=== PATIENT | male | born 1970 | race Hispanic/Latino ===

== ENCOUNTER 2016-11-09 00:22 | Emergency (ER) | payer OTHER ==
[~2016-11-09] VITALS: Ht 180.3 cm; Wt 81.8 kg
[2016-11-09 00:27] VITALS: BP 139/89; PULSE 83; RESP 16; O2SAT 99
--- NOTE | 2016-11-09 01:42 | ED.REPORT ---
HPI-Back Pain 40 and Over Date of Service Nov 09, 2016 ED Provider: Erick Galvan DO Pt is a 46 y.o. Egyptian-speaking male who presents to the ED c/o right sided low back pain onset 4 days ago. Pt states that he was pushing a cow at work when he had sudden onset pain. He states the pain has been constant since onset. He denies weakness, numbness, incontinence, bladder or bowel dysfunction , and extremity pain. Nursing Notes Stated Complaint: BACK PAIN Chief Complaint: Back Pain or Injury Nursing Notes Reviewed: Yes Allergies: Coded Allergies: No Known Allergies (Verified Allergy, Unknown, 11/09/16) General Time Seen by MD: 01:42 Chief Complaint Back pain Hx Obtained From: Patient Arrived By: Walk-in Sudden in Onset?: Yes Onset Occurred: 4 days ago Symptom Duration: Since onset Location: : Perispinal lumbar Quality: Painful Severity: Current: Moderate Severity: Maximum: Severe Past Medical History Past Medical History Healthy Past Surgical History None Smoking History Current Every Day Smoker Social History Alcohol Use: "Social" Drug Use: Denies drug use Ambulatory Status Independent Review of Systems Male: Denies Incontinence Musculoskeletal: Reports: Back pain, Denies: Extremity pain Neurologic: Denies: Bladder dysfunction, Bowel dysfunction, Numbness, Weakness Complete sys rev & neg: except as marked. Physical Exam Initial Vital Signs Vital Signs (First) Date Time Temp Pulse Resp B/P Pulse Ox O2 Delivery O2 Flow Rate FiO2 11/09/16 00:27 36.5 83 16 139/89 99 Room Air Initial VS: Reviewed Head / Eyes: Atraumatic, Normocephalic Extremities: Vascular intact, Neuro intact Skin: Warm, Dry, No cyanosis Psychiatric: Mood/affect normal, Behavior normal, Normal thought content General/Constitutional: Awake, Alert, No acute distress, Well appearing, Well developed, Well hydrated, Well nourished, Not toxic appearing Respiratory / Chest: Atraumatic, Breath sounds NL, Breath sounds = bilat, No respiratory distress, No rales, No rhonchi, No wheezing Cardiovascular: Heart rate NL, Regular rhythm, Heart sounds NL, Peripheral circulation NL Abdomen: Atraumatic, Soft, Non-tender, No guarding, No rebound, No distention Back: Atraumatic, Inspection NL Flank / Spine / Paraspinal: Positive: Lumbar paraspinal tend... (Low) Neurologic: Oriented X3, Speech NL, No motor deficits Sensory Deficit: Negative: Saddle anesthesia Re-Eval/Medical Decision Med Decision/Clinical Course No signs of cord syndrome or myelopathy. No saddle anesthesia. No urine retention or loss of bowel or bladder control. Symmetric reflexes. Pain is reproduced with palpation of the lumbar paraspinal muscle mass. This is all on the right. Symptoms consistent with acute lumbar strain with radiculopathy. This gentleman was medicated with Toradol and he felt better. Placement a short course of [place]. Naprosyn as well. Recommended outpatient follow-up. Re-Evaluation/Progress : Time of Eval: 01:59 Re-Evaluation/Progress Note: Physical exam performed. Discussed plan for discharge, pt understands and agrees with plan. Discharge & Departure Impression: Primary Impression: Low back pain Chronicity: acute Back pain laterality: right Sciatica presence: with sciatica Sciatica laterality: sciatica of right side Qualified Code: M54.41 - Lumbago with sciatica, right side Disposition: Home Discharge Condition All VS Reviewed: Yes Condition: Improved Patient Instructions: Acute Low Back Pain (ED) Additional Instructions: You were seen here today for low back pain. I recommend you follow-up with your primary care provider next week. Refrain from lifting or moving heavy objects until your pain has improved. Take 1-2 [place] every 6 hours as needed for severe pain. Do not drink, drive, or consume acetaminophen while taking [place]. Return if you develop worsening pain, numbness, weakness, incontinence, or any new or worsening symptoms. Observaron aqu hoy para dolor de espalda. Te recomiendo seguimiento con cowan m dico de atencin primaria la semana que viene. Abstenerse de levantar o car mover objetos pesados hasta que cowan dolor jones alexandr. Pavel [place] de 1-2 cada 6 horas jacques necesario para el dolor benjamin. No romain, coche, o consumir acetaminofn teniendo [place]. Volver si desarrolla empeoramiento del dolor, entumecimiento, debilidad, incontinencia o cualquier sntoma nuevo o que empeora. Referrals: [facility]OPCP (PCP) [facility] Scribe Attestation Portions of this note were transcribed by Marck Cordova. I, Dr. Galvan personally performed the history, physical exam and medical decision-making; I reviewed and confirmed the accuracy of the information in the transcribed note. Signed by : Regla Torres, 11/09/16 and 0200 copies to: [facility] Erick Galvan DO Nov 09, 2016 01:42 MARCK CORDOVA Nov 09, 2016 01:52
[2016-11-09] MEDS ORDERED: _HYDROcodone/APAP 5-325 mg Tablet PO PRN (01:50)
[2016-11-09] MEDS ORDERED: Ketorolac 30 mg/mL 2 mL Inj IM ONE (01:50)
[2016-11-09 02:49] VITALS: BP 123/77; PULSE 75; RESP 16; O2SAT 98
== END 2016-11-09 02:40 | disposition home or self-care (01) ==
LOC: SED 00:22
DX: M54.41 Lumbago with sciatica, right side (principal); S39.012A Strain of muscle, fascia and tendon of lower back, initial encounter; X50.0XXA Overexertion from strenuous movement or load, initial encounter; Y92.89 Other specified places as the place of occurrence of the external cause; Y99.0 Civilian activity done for income or pay; F17.200 Nicotine dependence, unspecified, uncomplicated
CPT/HCPCS: 96372; 99283; J1885

== ENCOUNTER 2017-01-18 11:17 | Emergency (ER) | payer OTHER ==
[~2017-01-18] VITALS: Ht 165.1 cm; Wt 76.3 kg
--- NOTE | 2017-01-18 11:25 | ED.REPORT ---
HPI-Trauma Multiple Date of Service January 18, 2017 ED Provider: Dr. Marie 46 y/o male with no pertinent hx presents to the ED complaining of head and right hand injury, onset just prior to arrival. The pt reports he fell 10 feet into the silo at work and hit his head upon the fall.The pt states his right hand hurts around the thumb. The pain is exacerbated when he clenches it into a fist. He denies LOC, neck pain, chest pain, abdominal pain and pain in extremities other than the right upper extremity. His last tetanus shot was 2 years ago. Nursing Notes Stated Complaint: POST FALL/FACIAL LACERATION/RIGHT HAND PAIN Nursing Notes Reviewed: Yes Allergies: Coded Allergies: No Known Allergies (Verified Allergy, Unknown, 11/09/16) General Time Seen by Provider: 11:24 Chief Complaint Extremity pain/injury Hx Obtained From: Patient Arrived By: Walk-in Onset Occurred: Just prior to arrival Symptom Duration: Since onset Progression Since Onset: Unchanged Caused by: Fall from height Location: : Hand right: Wrist right Quality: Painful Radiation: Does not radiate Severity: Current: Moderate Severity: Maximum: Moderate Immunizations: Tetanus up to date Recent Healthcare: No recent doctor visit Similar Sx Previous: No Past Medical History Past Medical History Healthy Past Surgical History None Smoking History Current Every Day Smoker Social History Alcohol Use: "Social" Drug Use: Denies drug use Ambulatory Status Independent Review of Systems Cardiovascular: Denies: Chest pain GI: Denies: Abdominal pain Musculoskeletal: Reports: Extremity pain (Right hand), Denies: Neck pain Neurologic: Reports: Headache Complete sys rev & neg: except as marked. Physical Exam Initial Vital Signs Vital Signs (First) Date Time Temp Pulse Resp B/P Pulse Ox O2 Delivery O2 Flow Rate FiO2 01/18/17 11:32 36.8 85 18 127/82 98 Room Air Initial VS: Reviewed Skin: Warm, Dry, No cyanosis No distracting injury. Head / Eyes: Normocephalic, PERRL Linear lacceration about the left eyebrow. No other facial injuries. Neck: Atraumatic, Full range of motion No midline tenderness or restriction. Respiratory / Chest: No chest tenderness Abdomen: Atraumatic, Soft, Non-tender, No guarding, No rebound ENT: Gums/dentition NL Occlusion normal. Upper Extremity / MS: Full range of motion, No swelling, Non-tender, No deformity, Neurologic intact, Vascular intact Wrist / Hand: No deformity, Neurologic intact, Vascular intact Right wrist and hand painful. Lower Extremity / Pelvis / MS: Full range of motion, No swelling, Non-tender, No erythema, No deformity, Neurologic intact, Vascular intact, Pelvis stable, Pelvis non-tender Interpretation & Diagnostics X-Ray Interpretation Xray Interpretation: IMPRESSION: No acute osseous abnormality of the right wrist. Dictated by: Carlos A Diaz M.D. on 01/18/2017 at 11:06 Approved by: Carlos A Diaz M.D. on 01/18/2017 at 11:06 X-Ray Ordered: Wrist right Interpretation / Wet Read by: Interpret - Radiologist Xray Interpretation: IMPRESSION: No acute fracture of the right hand. Dictated by: Carlos A Diaz M.D. on 01/18/2017 at 11:05 Approved by: Carlos A Diaz M.D. on 01/18/2017 at 11:05 X-Ray Ordered: Hand right Interpretation / Wet Read by: Interpret - Radiologist Procedures Laceration Management Time: 11:55 Procedure Performed by: ED resident Consent / Setup / Site Prep: Informed consent provided, Consent from patient , Time-out performed, Hand hygiene observed, Stand sterile technique Location of Wound: Forehead about the right eyebrow. Wound Length: 3 cm Local Anesthesia: Lidocaine 1% Digital Block: No Wound Preparation: Normal saline Debridement: None Irrigation: 50 cc Foreign Body Explore / Removal: Explored for foreign body Undermining / Margins: Undermining minimal Repair Skin: Nylon # Sutures - Skin: 4 Closure Layers: 1 Suture Technique: Simple Post-Procedure / Complications: Antibiotic oint applied, Dressing applied, No complications, Condition improved, Tolerated procedure well, Patient stable Re-Eval/Medical Decision Source of Hx: Old records Re-Evaluation/Progress : Time of Eval: 13:50 Patient Status: Condition improved Re-Evaluation/Progress Note: Rechecked pt. Discussed imaging results and diagnosis. Informed the pt of the plan to discharge. Pt understands and agrees with plan. F/U instructions and RTER warning given. All questions addressed. Counseled Regarding: Diagnosis, Lab results, Need for follow-up, When/why to return to ED Discharge & Departure Impression: Primary Impression: Fall from height of greater than 3 feet Additional Impressions: Laceration of eyebrow, left Encounter type: initial encounter Qualified Code: S01.112A - Laceration without foreign body of left eyelid and periocular area, initial encounter Contusion of right forearm Encounter type: initial encounter Qualified Code: S50.11XA - Contusion of right forearm, initial encounter Disposition: Home Discharge Condition All VS Reviewed: Yes Condition: Stable Patient Instructions: Contusion in Adults (ED), Facial Laceration (ED) Additional Instructions: No dangerous injuries are identified. I recommend Tylenol or ibuprofen as needed for pain. Sutures in the forehead need to be removed in one week. Follow-up in a week for your other injuries if your symptoms are not much improved. Referrals: [facility] Scribe Attestation Portions of this note were transcribed by Vianey Corbin. I, , personally performed the history, physical exam and medical decision-making;I reviewed and confirmed the accuracy of the information in the transcribed note. Signed by Regla Hahn. 01/18/17 [id number] copies to: [facility] Karl Marie MD January 18, 2017 11:25 Vianey Corbin January 18, 2017 11:36
[2017-01-18 11:32] VITALS: BP 127/82; PULSE 85; RESP 18; O2SAT 98
[2017-01-18] MEDS ORDERED: Lidocaine 1%-Epi 1:100,000 20 mL Inj ONE (11:43)
--- NOTE | 2017-01-18 12:07 | DRSVH ---
PROCEDURE: X-RAY RIGHT HAND, MINIMUM THREE VIEWS ([id number]) INDICATIONS: Trauma TECHNIQUE: 4 views of the hand(s) acquired. COMPARISON: [facility], CR, XR WRIST 3VW RT, 01/18/2017, 11:21. FINDINGS: Bones: No fractures or dislocations. Carpal bones are normally aligned. No suspicious bony lesions . Soft tissues: No suspicious soft tissue calcifications. IMPRESSION: No acute fracture of the right hand. Dictated by: Carlos A Diaz M.D. on 01/18/2017 at 11:05 Approved by: Carlos A Diaz M.D. on 01/18/2017 at 11:05
--- NOTE | 2017-01-18 12:08 | DRSVH ---
PROCEDURE: X-RAY RIGHT WRIST COMPLETE, MINIMUM THREE VIEWS ([id number]) INDICATIONS: Trauma. TECHNIQUE: 4 views of the wrist were acquired. COMPARISON: [facility], CR, XR HAND 3VW RT, 01/18/2017, 11:21. FINDINGS: Bones: No fractures or dislocations. No suspicious bony lesions. There may be mild dorsal subluxat ion of the distal ulna with respect to the distal radius. No widening of the distal radioulnar joint is evident. Scaphoid view: Intact. Soft tissues: No suspicious soft tissue calcifications. IMPRESSION: No acute osseous abnormality of the right wrist. Dictated by: Carlos A Diaz M.D. on 01/18/2017 at 11:06 Approved by: Carlos A Diaz M.D. on 01/18/2017 at 11:06
[2017-01-18 14:25] VITALS: BP 120/83; PULSE 76; RESP 16; O2SAT 98
== END 2017-01-18 14:09 | disposition home or self-care (01) ==
LOC: SED 11:17
DX: S01.112A Laceration without foreign body of left eyelid and periocular area, initial encounter (principal); S50.11XA Contusion of right forearm, initial encounter; W17.89XA Other fall from one level to another, initial encounter; Y93.89 Activity, other specified; Y92.69 Other specified industrial and construction area as the place of occurrence of the external cause; Y99.0 Civilian activity done for income or pay; F17.200 Nicotine dependence, unspecified, uncomplicated

== ENCOUNTER 2017-02-11 17:42 | Emergency (ER) | payer OTHER ==
[2017-02-11 17:48] VITALS: BP 99/62; PULSE 78; RESP 15; O2SAT 98
--- NOTE | 2017-02-11 18:28 | ED.REPORT ---
HPI-General Illness Date of Service Feb 11, 2017 ED Provider: Mike Stauffer MD The patient is a healthy 46 year old male who presents to the ED with right wrist pain onset three weeks ago, after a 10 foot fall at work. The pain is "stabbing" and "stinging" in nature, without radiation, exacerbated with movement and clenching his fist. The patient also reports right hand weakness. He denies limited range of motion of the wrist, hand tingling, additional injury /trauma, or other symptoms. The patient was seen in the ED on 01/18/17, just after onset, and was discharged after negative x-rays. No new injury noted. 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 Nursing Notes Stated Complaint: RIGHT HAND PAIN Chief Complaint: Extremity Trauma Nursing Notes Reviewed: Yes Allergies: Coded Allergies: No Known Allergies (Verified Allergy, Unknown, 11/09/16) General Time Seen by MD: 18:25 Chief Complaint Other (Right Wrist Pain) Hx Obtained From: Patient Arrived By: Walk-in Sudden in Onset?: Yes Onset Occurred: More than a week ago... (3 weeks) Symptom Duration: Since onset Caused by: Fall from height... (6-10 feet) Context: Occurred at: Workplace Location: : Wrist right Quality: Painful, Stabbing (and Stinging) Severity: Current: Moderate Severity: Maximum: Moderate Pertinent Negative: Relieved by nothing Recent Healthcare: Recent doctor visit Past Medical History Past Medical History Healthy Past Surgical History "Clot removal" s/p head injury in 1998 Smoking History Current Every Day Smoker Social History Alcohol Use: "Social" Drug Use: Denies drug use Other Social History: Good social support Ambulatory Status Independent Review of Systems - Llimited range of motion of the wrist, hand tingling Full Review of Systems Constitutional: Denies: Fever Respiratory: Denies: Non-productive cough, Shortness of breath GI: Denies: Diarrhea, Vomiting Musculoskeletal: Reports: Joint pain (Right wrist) Neurologic: Reports: Focal weakness (Right hand) Complete sys rev & neg: except as marked. Physical Exam General: Well appearing, no acute distress HEENT: mucous membranes moist Pulm: Speaking comfortably with unlabored respirations, no respiratory distress Card: Regular rate, good peripheral perfusion Abd: Soft, nontender, nondistended Skin: Warm and dry, no rashes or pallor appreciated Psych: Appropriate mood and affect. Behavior appears normal. Neuro: AOx3, strength and sensation to light touch grossly intact throughout. Extremities: Moving all extremities, no peripheral edema appreciated, tenderness to radial aspect of right wrist with associated right snuffbox tenderness, tenderness to medial aspect of right elbow. Good strength and sensation in bilateral upper extremities, including median, ulnar, and radial nerves in hand and forearm. Vital Signs Vital Signs Date Time Temp Pulse Resp B/P Pulse Ox O2 Delivery O2 Flow Rate FiO2 02/11/17 17:48 36.4 78 15 99/62 98 Room Air Initial VS: Reviewed Interpretation & Diagnostics X-Ray Interpretation Xray Interpretation: IMPRESSION: No acute fracture or dislocation. Probable joint effusion. If pain persists, consider cross-sectional imaging such as CT or MRI. Dictated by: Elyssa Dowling M.D. on 02/11/2017 at 20:21 Study Performed: 4 View X-Ray Ordered: Wrist right Interpretation / Wet Read by: Interpret - Radiologist Xray Interpretation: IMPRESSION: No acute fracture or dislocation. Dictated by: Elyssa Dowling M.D. on 02/11/2017 at 20:22 Study Performed: 3 View X-Ray Ordered: Elbow right Interpretation / Wet Read by: Interpret - Radiologist Re-Eval/Medical Decision Med Decision/Clinical Course In summary, 46-year-old male presenting to the ED for evaluation of right wrist pain after an injury sustained 3-4 weeks ago. Initial x-rays were negative for fracture. Given his snuffbox tenderness here in the ED today, x-rays were repeated, reviewed - no evidence of acute fracture. Discussed patient with Dr. Sparks, who recommended placement in a thumb spica, follow up in clinic for eval of occult fracture. Careful return precautions discussed. Discussed plan with the patient, who is agreeable, no further questions. Consultation : Referral / Consult Name: Mandeep Sparks DO Consulted With: Orthopedic Call Returned at: 19:29 Batt Machine Operator: Agrees with eval, Agrees with plan Note: Recommends thumb spica splint and follow-up in one week. Discharge & Departure Primary Impression: Wrist strain Laterality: right Disposition: Home Discharge Condition All VS Reviewed: Yes Condition: Improved Patient Instructions: Splint Care (ED), Wrist Sprain (ED) Additional Instructions: Thank you for entrusting us with your care. Your exam today was reassuring. Your x-ray was normal. Wear the splint until you are seen in follow-up. Ibuprofen or Tylenol as directed for pain. Call the referral orthopedist (Dr. Sparks) tomorrow for an appointment in one week. Return to the ER with any new or worsening symptoms. Referrals: NOPCP (PCP) Mandeep Sparks DO Scribjose alberto Attestation Portions of this note were transcribed by Antonia Khan. I, Dr. Stauffer, personally performed the history, physical exam, and medical decision-making; I reviewed and confirmed the accuracy of the information in the transcribed note. copies to: Mandeep Sparks William B MD Feb 11, 2017 18:28 ANTONIA KHAN Feb 11, 2017 18:36
--- NOTE | 2017-02-11 20:24 | DRSVH ---
PROCEDURE: X-RAY RIGHT ELBOW COMPLETE, MINIMUM THREE VIEWS ([id number]) INDICATIONS: snuffbox TTP, pain to medial R elbow TECHNIQUE: 3 views of the elbow were acquired. COMPARISON: None. FINDINGS: Bones: No fractures or dislocations. No suspicious bony lesions. There is an olecranon enthesophyt e. Soft tissues: No elbow joint effusion. No suspicious soft tissue calcifications. IMPRESSION: No acute fracture or dislocation. Dictated by: Elyssa Dowling M.D. on 02/11/2017 at 20:22 Approved by: Elyssa Dowling M.D. on 02/11/2017 at 20:23
--- NOTE | 2017-02-11 20:24 | DRSVH ---
PROCEDURE: X-RAY RIGHT WRIST COMPLETE, MINIMUM THREE VIEWS ([id number]) INDICATIONS: snuffbox TTP, pain to medial R elbow TECHNIQUE: 4 elevation of the pronator fat-pad suggest joint effusion. views of the wrist were acquir ed. COMPARISON: None. FINDINGS: Bones: No fractures or dislocations. No suspicious bony lesions. Scaphoid view: The scaphoid is intact. Soft tissues: No suspicious soft tissue calcifications. There is elevation of the pronator quadratus fat pad suggesting joint effusion. IMPRESSION: No acute fracture or dislocation. Probable joint effusion. If pain persists, consider red cross executive director ss-sectional imaging such as CT or MRI. Dictated by: Elyssa Dowling M.D. on 02/11/2017 at 20:21 Approved by: Elyssa Dowling M.D. on 02/11/2017 at 20:22
[2017-02-11 21:02] VITALS: BP 107/68; PULSE 71; RESP 16; O2SAT 98
== END 2017-02-11 21:06 | disposition home or self-care (01) ==
LOC: SED 17:42
DX: S69.81XA Other specified injuries of right wrist, hand and finger(s), initial encounter (principal); W17.89XA Other fall from one level to another, initial encounter; Y93.89 Activity, other specified; Y92.89 Other specified places as the place of occurrence of the external cause; Y99.0 Civilian activity done for income or pay; F17.200 Nicotine dependence, unspecified, uncomplicated